=== PATIENT | female | born 1985 | race African-American/Black ===

== ENCOUNTER 2023-11-22 00:50 | Emergency (ER) | payer MEDICAID, OTHER ==
[~2023-11-22] VITALS: Ht 170.2 cm; Wt 83.9 kg
[2023-11-22] MEDS: LABETALOL 5MG/ML SYR 20 MG/4 ML SYRINGE IV ONE ×2 (01:20→02:17)
[2023-11-22 01:36] LABS: BASOPHILS % 0.6 % (0.0-2.0); EOSINOPHILS % 2.4 % (0.0-5.0); HEMATOCRIT. 37.4 % (36.0-48.0); HEMOGLOBIN. 12.7 g/dL (12.0-16.0); LYMPHOCYTES % 16.5 % (20.0-50.0); MEAN CORPUSCULAR HEMOGLOBIN 29.6 pg (28.0-32.0); MEAN PLATELET VOLUME 10.5 fl (7.4-10.4); NEUTROPHILS % 70.5 % (40.0-76.0); PLATELET 157 x1000/uL (130-400); RED BLOOD CELL COUNT 4.29 mill/uL (4.2-5.4); RED CELL DISTRIBUTION WIDTH 14.1 % (11.6-14.6)
[2023-11-22 01:51] LABS: ALANINE AMINOTRANSFERASE 91 IU/L (10-49); ALBUMIN 3.8 g/dL (3.2-4.8); ASPARTATE AMINOTRANSFERASE 104 IU/L (<34); BILIRUBIN TOTAL 0.5 mg/dL (0.1-1.0); CALCIUM 9.7 mg/dL (8.7-10.4); CARBON DIOXIDE 21 mEq/L (21-32); CHLORIDE 102 mEq/L (98-107); CREATININE 0.6 mg/dL (0.6-1.0); GLUCOSE 91 mg/dL (70-105); POTASSIUM 4.1 mEq/L (3.5-5.1); PROTEIN TOTAL 7.4 g/dL (6.0-8.3); SODIUM 133 mEq/L (136-145); UREA NITROGEN BLOOD 8 mg/dL (9-23)
[2023-11-22 02:20] VITALS: BP 145/89; PULSE 83; RESP 19; TEMP 98.3
[2023-11-22 02:21] LABS: HCG SCREEN POSITIVE
[2023-11-22 02:22] LABS: INR 0.9; PARTIAL THROMBOPLASTIN TIME 28.9 sec (23.4-31.0); PROTHROMBIN TIME 9.7 sec (9.6-11.0)
== END 2023-11-22 02:31 | disposition short-term general hospital (02) ==
LOC: ER 01:49
DX: O26.892 Other specified pregnancy related conditions, second trimester (principal); Z3A.28 28 weeks gestation of pregnancy
CPT/HCPCS: 99285; 96374; 76805; 86592; 80053; 84703; 85025; 85610; 85730; 86850; 86900; 86901; 36415; 86705; 96376; J3490